=== PATIENT | female | born 1980 | race Caucasian/White ===

== ENCOUNTER 2019-03-02 15:39 | Emergency (ER) | payer MEDICAID ==
[~2019-03-02] VITALS: Ht 152.4 cm; Wt 64.2 kg
[~2019-03-02 15:39] MED LIST: ACET500C5 PO; BUTA1CAP38 PO; IBUP-1542 PO; NITR-58 PO; ONDA4TAB14 PO
[2019-03-02 15:42] VITALS: BP 121/72; PULSE 64; RESP 20; Ht 152.4 cm; Wt 64.2 kg
[2019-03-02] MEDS ORDERED: ACETAMINOPHEN 500 MG TAB PO STA (16:34)
[2019-03-02] MEDS ORDERED: ONDANSETRON (ODT) 4 MG TAB ODT STA (16:34)
[2019-03-02] MEDS ORDERED: KETOROLAC 30 MG INJ IM STA (16:34)
--- NOTE | 2019-03-02 16:58 | ERD ---
ER Documentation Chief Complaint Chief Complaint LOVE, neck pain, with vomiting x 3 days HPI This is a 38-year-old female patient who presents to the emergency room with complaint of headache x3 days. Patient saw her PMD yesterday who prescribed sumatriptan and patient states it only makes her nauseated and does not stop headache. States she has history of migraines for the last 3 years and has never seen a neurologist. States that her headache pain is diffuse, throbbing, + photophobia. Denies nausea today, denies visual deficit, states this is a typical headache for her. No fevers, patient does not smoke, she has not tried using Tylenol or ibuprofen for her headache pain. Patient has clear speech, steady gait, NAD at time of evaluation. ROS All systems reviewed and are negative except as per history of present illness. Medications Home Meds Active Scripts Ondansetron (Ondansetron Odt) 4 Mg Tab.rapdis, 4 MG PO Q6H PRN for NAUSEA AND/OR VOMITING, #10 TAB Prov:ELAINA SILVESTRE NP 03/02/19 Xbtyitvdjx-Ybeefddhmfbsg-Tfbkwjwv* (Fioricet*) 50-300-40 Mg Capsule, 1 CAP PO Q4H PRN for HEADACHE for 5 Days, #10 CAP Prov:ELAINA SILVESTRE NP 03/02/19 Ibuprofen* (Motrin*) 600 Mg Tab, 600 MG PO Q6 for headache, #30 TAB Prov:ELAINA SILVESTRE NP 03/02/19 Acetaminophen* (Tylophen*) 500 Mg Capsule, 2 CAP PO Q8H PRN for PAIN AND OR ELEVATED TEMP, #20 CAP Prov:ELAINA SILVESTRE NP 03/02/19 Nitrofurantoin Monohyd Macrocr* (Macrobid*) 100 Mg Capsr, 100 MG PO BID for 5 Days, #10 CAP Prov:ELAINA SILVESTRE NP 03/02/19 Allergies Allergies: Coded Allergies: No Known Allergy (Unverified , 03/02/19) PMhx/Soc Medical and Surgical Hx: pt denies Surgical Hx Hx Alcohol Use: No Hx Substance Use: No Hx Tobacco Use: No Smoking Status: Never smoker FmHx Family History: No diabetes, No coronary disease, No other Physical Exam Vitals Vital Signs Date Temp Pulse Resp B/P (MAP) Pulse Ox O2 O2 Flow FiO2 Time Delivery Rate 03/02/19 98.2 64 20 121/72 100 15:42 (88) Physical Exam Const: No acute distress Head: Atraumatic Eyes: Normal Conjunctiva, PERRL, EOMI ENT: Normal External Ears, Nose and Mouth. TM clear BL. Neck: Full range of motion. No meningismus. No cervical spinal tenderness. +tenderness to upper trapezius. Resp: Clear to auscultation bilaterally Cardio: Regular rate and rhythm, no murmurs Abd: Soft, non tender, non distended. Normal bowel sounds Skin: No petechiae or rashes Back: No midline or flank tenderness, no CVT Ext: No cyanosis, or edema Neur: Awake and alert, CN II-XII intact, steady gait, clear speech, no pronator drift, equal smile, BL associate sales 5/5, sensation intact BL, negative Romberg, negative [id number] test. Psych: Normal Mood and Affect Results 24 hrs Laboratory Tests Test 03/02/19 16:41 03/02/19 16:49 Urine Color YELLOW Urine Clarity SLIGHTLY CLOUDY Urine pH 9.0 Urine Specific [place] 1.010 Urine Ketones NEGATIVE mg/dL Urine Nitrite NEGATIVE mg/dL Urine Bilirubin NEGATIVE mg/dL Urine Urobilinogen NEGATIVE mg/dL Urine Leukocyte Esterase 1+ Dominick/ul Urine Microscopic RBC 1 /HPF Urine Microscopic WBC 17 /HPF Urine Squamous Epithelial Cells MODERATE /HPF Urine Hemoglobin NEGATIVE mg/dL Urine Glucose NEGATIVE mg/dL Urine Total Protein NEGATIVE mg/dl POC Beta HCG, Qualitative NEGATIVE Current Medications Medications Dose Sig/Subhash Start Time Status Last (Trade) Ordered Route PRN Stop Time Admin Dose Reason Admin 1,000 mg ONCE STAT 03/02/19 DC 03/02/19 Acetaminophen PO 16:34 03/02/19 16:45 (Tylenol 16:36 Tab) Ketorolac 30 mg ONCE STAT 03/02/19 DC 03/02/19 Tromethamine IM 16:34 03/02/19 16:52 (Toradol) 16:36 Ondansetron 4 mg ONCE STAT 03/02/19 DC 03/02/19 HCl (Zofran ODT 16:34 03/02/19 16:45 Odt) 16:36 Procedures/MDM PROCEDURES/MDM DIAGNOSTIC IMAGING: Not indicated, no neurological deficits LAB INTERPRETATION: UA: +leuk, +WBC -Medications: toradol, Tyleonol, zofran Patient tolerated medication well with no adverse reactions. Patient reported improvement in pain. MDM: The patient was well-appearing with VSS and without neurological deficits at time of reevaluation and discharge. Clinical and diagnostic exam not suggestive of infection, intracranial process, SAH, SDH, neoplasm, meningitis, encephalitis, aneurysm, thrombus, temporal arteritis, sinusitis. The patient has been provided with instructions on self-care including use of analgesia, reducing triggers, and need for close follow-up with primary care physician within 1-2 days for reevaluation. The patient has been instructed to return immediately for worsening symptoms, change in pattern of current symptoms, or other acute problems. There is low suspicion for pyelonephritis, vaginitis, STI, or interstitial cystitis due to absence of clinical findings that would support a diagnosis more serious than uncomplicated UTI. These diagnoses have been considered and excluded clinically. Nonetheless, it is understood by both the patient and provider that no clinical or diagnostic assessment can entirely exclude such diseases. Patient has been instructed on signs and symptoms of concern or with evolving condition with strict instructions to return to ED for reevaluation. DISPOSITION and PLAN: RX: Ibuprofen, Tylenol, Fioricet, Macrobid, zofran The patient has been discharge home to follow-up with community physician. Departure Diagnosis: Primary Impression: Headache Headache type: tension-type Headache chronicity pattern: chronic headache Intractability: not intractable Qualified Codes: G44.229 - Chronic te nsion-type headache, not intractable Additional Impression: Cystitis Condition: Stable ELAINA SILVESTRE NP Mar 02, 2019 16:58
== END 2019-03-02 17:42 | disposition home or self-care (01) ==
LOC: FTE 15:39
DX: G44.229 Chronic tension-type headache, not intractable (principal); N30.90 Cystitis, unspecified without hematuria
CPT/HCPCS: 81001; 81025; 96372; J1885; Z7502; Z7610